=== PATIENT | female | born 1980 | race Two or more races ===

== ENCOUNTER 2021-01-15 07:48 | Day surgery (SDC) | payer OTHER ==
[2021-01-12 15:52] LABS: BLOOD UREA NITROGEN,BUN 12 mg/dL (7.0-18.0); CARBON DIOXIDE,CO2 29.5 mmol/L (21.0-32.0); CHLORIDE,CL 105 mmol/L (98-107); GLUCOSE RANDOM 136 mg/dL (74-106); POTASSIUM,K 3.3 mmol/L (3.5-5.1); SODIUM,NA 140 mmol/L (136-145)
[~2021-01-15 07:48] MED LIST: Albuterol 0.083% 2.5 MG/3 ML Neb Soln NEB PRN; HYDROmorphone 1 MG/ML Syringe IVPUSH PRN; Lactated Ringers 1,000 ML IV SCH; Metoclopramide 10 MG/2 ML SDV IVPUSH PRN; Morphine 2 MG/ML SYRINGE IVPUSH PRN; Naloxone 0.4 MG/ML Syringe IVPUSH PRN; Ondansetron 4 MG/2 ML SDV IVPUSH PRN; Scopolamine 1.5 MG Transdermal Patch ONE; ceFAZolin 2 GM in Premix Bag 1 BAG IV ONE; fentaNYL 100 MCG/2 ML SDV IVPUSH PRN
[2021-01-15] MEDS ORDERED: Dexamethasone 4 MG/ML 5 ML MDV ONE (08:17)
[2021-01-15] MEDS ORDERED: Dexmedetomidine 200 MCG/2 ML SDV ONE (08:17)
[2021-01-15] MEDS ORDERED: Metoclopramide 10 MG/2 ML SDV ONE (08:17)
[2021-01-15] MEDS ORDERED: Rocuronium Bromide 50 MG/5 ML Syringe ONE ×2 (08:17→09:21)
[2021-01-15] MEDS ORDERED: Sodium Chloride 0.9% 20 ML ONE ×2 (08:17→08:52)
[2021-01-15] MEDS ORDERED: Glycopyrrolate 0.2 MG/ML SDV ONE (08:17)
[2021-01-15] MEDS ORDERED: Ketamine 500 mg/10 ML MDV ONE (08:18)
[2021-01-15] MEDS ORDERED: fentaNYL 100 MCG/2 ML SDV ONE (08:18)
[2021-01-15] MEDS ORDERED: Ketorolac 30 MG/ML SDV ONE (08:18)
[2021-01-15] MEDS ORDERED: Propofol 200 MG/20 ML SDV ONE (08:26)
[2021-01-15] MEDS ORDERED: Ondansetron 4 MG/2 ML SDV ONE (08:26)
[2021-01-15] MEDS ORDERED: Octyl 2-Cyanoacrylate 1 Tube ONE (08:33)
[2021-01-15] MEDS ORDERED: ceFAZolin 1 GM Vial ONE (08:52)
[2021-01-15] MEDS ORDERED: Heparin Sodium 100 Units/ML 3 ML Syringe ONE (09:20)
[2021-01-15] MEDS ORDERED: Sugammadex Sodium 200 MG/2 ML VIAL ONE (09:21)
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
--- NOTE | 2021-01-15 09:50 | PCM.OPNOTE ---
- General Post-Op/Procedure Note Date of Surgery/Procedure: 01/15/21 Operative Procedure(s): Dignostic Laparascopy Pre Op Diagnosis: Pelvic mass Post-Op Diagnosis: Same Anesthesia Technique: General ET Tube Primary Surgeon: David Marin EBL in mLs: 50 Complications: None Condition: Good
--- NOTE | 2021-01-15 09:51 | PCM.DCSUM1 ---
Discharge Summary - Hospital Course Diagnosis: Stroke: No - Discharge Data Discharge Date: 01/15/21 Discharge Disposition: Home, Self-Care 01 Condition: Good - Referral to Home Health Primary Care Physician: PCP None - Patient Summary/Data Operative Procedure(s) Performed: Dignostic Laparascopy - Patient Instructions Diet: Usual Diet as Tolerated Activity: As Tolerated Driving: Do Not Drive Showering/Bathing: May Shower Notify Provider of: Fever, Increased Pain, Swelling and Redness, Drainage, Nausea and/or Vomiting - Discharge Plan Home Medications: Home Meds Cholecalciferol (Vitamin D3) [Vitamin D3] 0 unit PO DAILY 01/09/21 [History] Iron 0 mg PO DAILY 01/09/21 [History] Multivitamin 1 tab PO DAILY 01/09/21 [History] Vitamin E 0 unit PO DAILY 01/09/21 [History] - Discharge Summary/Plan Comment DC Time >30 min.: Yes - General Info Date of Service: 01/15/21 Functional Status: Reports: Pain Controlled - Review of Systems General: Reports: No Symptoms HEENT: Reports: No Symptoms Pulmonary: Reports: No Symptoms Cardiovascular: Reports: No Symptoms Gastrointestinal: Reports: No Symptoms Genitourinary: Reports: No Symptoms Musculoskeletal: Reports: No Symptoms Skin: Reports: No Symptoms Neurological: Reports: No Symptoms Psychiatric: Reports: No Symptoms - Patient Data Vitals - Most Recent: Last Vital Signs Temp 36.1 C 01/15/21 08:06 Pulse 72 01/15/21 08:06 Resp 14 01/15/21 08:06 BP 112/59 L 01/15/21 08:06 Pulse Ox 100 01/15/21 08:06 Weight - Most Recent: 84.822 kg Lab Results - Last 24 hrs: Laboratory Results - last 24 hr 01/14/21 Range/Units 09:34 Blood Type O POSITIVE Antibody Screen NEGATIVE Med Orders - Current: Current Medications Albuterol (Albuterol 0.083% 2.5 Mg/3 Ml Neb Soln) 2.5 mg NEB ONETIME PRN PRN Reason: Wheezing Droperidol (Droperidol 5 Mg/2 Ml Sdv) 0.625 mg IVPUSH ONETIME PRN PRN Reason: Nausea/Vomiting Fentanyl (Fentanyl 100 Mcg/2 Ml Sdv) 50 mcg IVPUSH Q5M PRN PRN Reason: Pain (mild 1-3) Hydromorphone HCl (Hydromorphone 1 Mg/Ml Syringe) 1 mg IVPUSH Q10M PRN PRN Reason: Pain (moderate 4-6) Lactated Ringer's (Ringers, Lactated) 1,000 mls @ 125 mls/hr IV ASDIRECTED [facility] Last Admin: 01/15/21 08:11 Dose: 125 mls/hr Documented by: Metoclopramide HCl (Metoclopramide 10 Mg/2 Ml Sdv) 10 mg IVPUSH ONETIME PRN PRN Reason: Nausea/Vomiting Morphine Sulfate (Morphine 2 Mg/Ml Syringe) 2 mg IVPUSH Q10M PRN PRN Reason: Pain (severe 7-10) Naloxone HCl (Naloxone 0.4 Mg/Ml Syringe) 0.1 mg IVPUSH ASDIRECTED PRN PRN Reason: Respiratory Depression Ondansetron HCl (Ondansetron 4 Mg/2 Ml Sdv) 4 mg IVPUSH ONETIME PRN PRN Reason: Nausea/Vomiting Discontinued Medications Cefazolin Sodium (Cefazolin 1 Gm Vial) Confirm Administered Dose 2 gm .ROUTE .STK-MED ONE Stop: 01/15/21 08:53 Dexamethasone (Dexamethasone 4 Mg/Ml 5 Ml Mdv) Confirm Administered Dose 20 mg .ROUTE .STK-MED ONE Stop: 01/15/21 08:18 Dexmedetomidine HCl (Dexmedetomidine 200 Mcg/2 Ml Sdv) Confirm Administered Dose 200 mcg .ROUTE .[facility]-MED ONE Stop: 01/15/21 08:18 Fentanyl (Fentanyl 100 Mcg/2 Ml Sdv) Confirm Administered Dose 100 mcg .ROUTE .[facility]-MED ONE Stop: 01/15/21 08:19 Glycopyrrolate (Glycopyrrolate 0.2 Mg/Ml Sdv) Confirm Administered Dose 0.2 mg .ROUTE .[facility]-MED ONE Stop: 01/15/21 08:18 Heparin Sodium (Porcine) (Heparin Sodium 100 Units/Ml 3 Ml Syringe) Confirm Administered Dose 300 unit .ROUTE .[facility]-MED ONE Stop: 01/15/21 09:21 Cefazolin Sodium/Dextrose 2 gm (/ Premix) 50 mls @ 100 mls/hr IV ONETIME ONE Stop: 01/12/21 15:03 Acetaminophen (Ofirmev 1000 Mg/100 Ml) Confirm Administered Dose 100 mls @ as directed .ROUTE .[facility] ONE Stop: 01/15/21 08:18 Sodium Chloride (Normal Saline) Confirm Administered Dose 20 mls @ as directed .ROUTE .[facility] ONE Stop: 01/15/21 08:18 Sodium Chloride (Normal Saline) Confirm Administered Dose 20 mls @ as directed .ROUTE .[facility] ONE Stop: 01/15/21 08:53 Ketamine HCl (Ketamine 500 Mg/10 Ml Mdv) Confirm Administered Dose 500 mg .ROUTE .[facility] ONE Stop: 01/15/21 08:19 Ketorolac Tromethamine (Ketorolac 30 Mg/Ml Sdv) Confirm Administered Dose 30 mg .ROUTE .[facility] ONE Stop: 01/15/21 08:19 Lidocaine HCl (Lidocaine 1% 5 Ml Sdv) Confirm Administered Dose 5 ml .ROUTE .[facility] ONE Stop: 01/15/21 08:18 Metoclopramide HCl (Metoclopramide 10 Mg/2 Ml Sdv) Confirm Administered Dose 10 mg .ROUTE .[facility] ONE Stop: 01/15/21 08:18 Octyl Cyanoacrylate (Octyl 2-Cyanoacrylate 1 Tube) Confirm Administered D[facility] 1 [facility] ONE Stop: 01/15/21 08:34 Ondansetron HCl (Ondansetron 4 Mg/2 Ml Sdv) Confirm Administered Dose 4 mg .ROUTE .[facility] ONE Stop: 01/15/21 08:27 Propofol (Propofol 200 Mg/20 Ml Sdv) Confirm Administered Dose 200 mg .ROUTE .[facility] ONE Stop: 01/15/21 08:27 Rocuronium [place] (Rocuronium [place] 50 Mg/5 Ml Syringe) Confirm Administered Dose 50 mg .ROUTE .[facility] ONE Stop: 01/15/21 08:18 Rocuronium [place] (Rocuronium [place] 50 Mg/5 Ml Syringe) Confirm Administered Dose 50 mg .[facility] ONE Stop: 01/15/21 09:22 Scopolamine (Scopolamine 1.5 Mg Transdermal Patch) Confirm Administered Dose 1.5 mg [facility] ONE Stop: 01/15/21 07:31 Sugammadex Sodium (Sugammadex Sodium 200 Mg/2 Ml Vial) Confirm Administered Dose 200 [facility] ONE Stop: 01/15/21 09:22 - Exam General: Reports: Alert, Oriented HEENT: Reports: Pupils Equal, Pupils Reactive, EOMI, Mucous Membr. Moist/[place]: Reports: Supple Lungs: Reports: Clear to Auscultation, Normal Respiratory Effort Cardiovascular: Reports: Regular Rate, Regular Rhythm GI/Abdominal Exam: Normal Bowel Sounds, Soft, Non-Tender, No Organomegaly, No Distention, No Abnormal Bruit, No Mass, Pelvis Stable (Female) Exam: Normal External Exam, Normal Speculum Exam, Normal Bimanual Exam Rectal (Female) Exam: Normal Exam, Normal Rectal Tone Back Exam: Reports: Normal Inspection, Full Range of Motion Extremities: Normal Inspection, Normal Range of Motion, Non-Tender, No Pedal Edema, Normal Capillary Refill Skin: Reports: Warm, Dry, Intact Wound/Incisions: Reports: Healing Well Neurological: Reports: No New Focal Deficit Psy/Mental Status: Reports: Alert, Normal Affect, Normal Mood
--- NOTE | 2021-01-15 10:01 | PCM.POSTAN ---
POST ANESTHESIA ASSESSMENT - MENTAL STATUS Mental Status: Somnolent - VITAL SIGNS Vital Signs: Last Vital Signs Temp 97.3 F 01/15/21 09:53 Pulse 86 01/15/21 09:59 Resp 11 L 01/15/21 09:59 BP 117/58 L 01/15/21 09:59 Pulse Ox 96 01/15/21 09:59 - RESPIRATORY Respiratory Status: Respiratory Rate WNL, Airway Patent, O2 Saturation Stable - CARDIOVASCULAR CV Status: Pulse Rate WNL, Blood Pressure Stable - GASTROINTESTINAL GI Status: No Symptoms - POST OP HYDRATION Hydration Status: Adequate & Stable
--- NOTE | 2021-01-15 10:02 | PCM48HPAN ---
Post Anesthesia Note - EVALUATION WITHIN 48HRS OF ANESTHETIC Vital Signs in Normal Range: Yes Patient Participated in Evaluation: Yes Respiratory Function Stable: Yes Airway Patent: Yes Cardiovascular Function Stable: Yes Hydration Status Stable: Yes Pain Control Satisfactory: Yes Nausea and Vomiting Control Satisfactory: Yes Mental Status Recovered: Yes Vital Signs: Last Vital Signs Temp 97.3 F 01/15/21 09:53 Pulse 86 01/15/21 09:59 Resp 11 L 01/15/21 09:59 BP 117/58 L 01/15/21 09:59 Pulse Ox 96 01/15/21 09:59
--- NOTE | 2021-01-15 14:21 | OR ---
SURGEON: David Marin MD DATE OF PROCEDURE: 01/15/2021 PREOPERATIVE DIAGNOSES: Bilateral adnexal masses, elevated CA-125. POSTOPERATIVE DIAGNOSES: Bilateral adnexal masses, elevated CA-125. OPERATION PERFORMED: Multiple-puncture diagnostic laparoscopy, peritoneal lavage, opening cytology, and draining of bilateral endometrioma. PRIMARY SURGEON: David Marin MD APPRAISAL TECHNICIAN: OR tech. ANESTHESIA: General endotracheal intubation. ESTIMATED BLOOD LOSS: Less than 50 mL. COMPLICATIONS: None. FINDINGS: Bilateral endometrioma in both ovary. Both tubes are essentially normal. There is some endometriosis at the cul-de-sac and at the area of the rectum. Other than that, her pelvis is relatively clean. INDICATION FOR SURGERY: This patient is 40. She had bilateral masses in her ovary and elevated CA-125. She is admitted with the intention of doing diagnostic laparoscopy, possible biopsy, and evaluation, and if this needs further treatment, then it would be done at a later time. DESCRIPTION OF PROCEDURE: The patient was brought to the OR, properly identified. After adequate level of general anesthesia, the patient was placed in lithotomy position, prepped and draped in sterile fashion as usual. A straight catheter was used to empty the bladder, and the colpotomizer manipulator placed in the uterus for manipulation, the operation shifted abdominally. Stab wound done beneath the umbilicus. The Veress needle was placed in the peritoneal cavity and that cavity insufflated with adequate CO2 and then a 5 mm trocar was placed in place utilizing the Visiport technique. Once we did that, then 10/12 trocar is in the left iliac fossa and 5 mm trocar in the right iliac fossa. After the patient was placed in steep Trendelenburg, inspection of the pelvis, the patient's both tubes were essentially normal, the bladder flap was normal, the patient had bilateral endometrioma on both of her ovary, and scattered endometriosis relatively stage I in the back of the cul-de-sac, and at the surface of the rectum she had bilateral endometrioma. After lysing all the adhesions and doing peritoneal lavage and collecting the opening cytology and then draining of both bilateral endometrioma was performed without any problem and then thorough irrigation of the endometrial cyst on both ovaries. Once this was done, inspection of the entire operative field, there was no oozing, no bleeding. We decided to end the procedure. At this time, the instrument and sponge count retrieved from the abdomen and the vagina, and the multiple laparoscopic incisions were closed in layer. Instrument and sponge count was correct. The patient tolerated the procedure well, went to recovery room in stable general condition. MAURILIO GUILLERMO /[id number]
== END 2021-01-15 12:00 | disposition home or self-care (01) ==
LOC: MW.SDS 07:48
PROVIDERS: ATTEND Obstetrics & Gynecology
DX: N80.1 Endometriosis of ovary (principal); N80.3 Endometriosis of pelvic peritoneum; R97.1 Elevated cancer antigen 125 [CA 125]; N92.0 Excessive and frequent menstruation with regular cycle
CPT/HCPCS: 36415; 49084; 49322; 80048; 84703; 85027; 86850; 86900; 86901; A9270; J0131; J0690; J1100; J1885; J2405; J2704; J2765; J3010; J3490; J7030; J7120; 00840; J1642